=== PATIENT | female | born 2000 | race Caucasian/White ===

== ENCOUNTER 2023-11-26 23:56 | Inpatient (IN) | payer OTHER ==
[2023-11-27 00:31] LABS: AMNISURE TEST RESULTS NEGATIVE (NEGATIVE)
[2023-11-27 00:38] LABS: Appearance Cloudy (Clear); Bacteria Few /HPF (None Seen); Bilirubin Negative (Negative); Blood Large (Negative); Epithelial Cells Few /HPF (None Seen); Glucose, Urine Negative (Negative); Hyaline Casts NONE SEEN /LPF (0-2); Ketones Negative (Negative); Leukocyte Esterase Large (Negative); Nitrite Negative (Negative); Ph 6.5 (4.6-8.0); Protein,Urine Dip Trace (Negative); RBC >100 /HPF (0-5); WBC >100 /HPF (0-5)
[2023-11-27 00:40] LABS: ADD URINE CULTURE? YES (NO)
[2023-11-27 00:49] LABS: Amphetamine,Urine NEGATIVE (NEGATIVE); Barbiturate,Urine NEGATIVE (NEGATIVE); Benzodiazepine,Urine NEGATIVE (NEGATIVE); Cocaine,Urine NEGATIVE (NEGATIVE); Methadone,Urine NEGATIVE (NEGATIVE); Opiate,Urine NEGATIVE (NEGATIVE); PCP,Urine NEGATIVE (NEGATIVE); THC,Urine NEGATIVE (NEGATIVE)
[2023-11-27] MEDS ORDERED: TYLENOL EXTRA STRENGTH 500 MG PO PRN (03:00)
[2023-11-27] MEDS ORDERED: XYLOCAINE 1% HCL 20 ML MDV IJ PRN (03:00)
[2023-11-27] MEDS: Lactated Ringers 1,000 ML IV SCH (03:24)
[2023-11-27] MEDS: STADOL 2 MG IV PRN (03:39)
[2023-11-27] MEDS: Zofran 4 MG/2 ML VIAL IV PRN (03:39)
[2023-11-27 03:57] LABS: Absolute Neutrophil Ct (ANC) 13.63 x10^3/uL (1.4-6.9); BASOPHIL % 0.2 % (0.0-0.4); Basophil (Absolute #) 0.03 x10^3/uL (0-0.4); Eosinophil % 0.1 % (0.00-5.0); Eosinophil (Absolute #) 0.02 x10^3/uL (0-0.5); Hematocrit 37.3 % (35-47); Hemoglobin 12.4 g/dL (12.0-16.0); IMMATURE GRAN # 0.15 x10^3u/L (0.00-0.03); IMMATURE GRAN % 0.9 % (0.00-0.4); Lymphocyte (Absolute #) 1.32 x10^3/uL (1.0-4.6); Lymphocytes % 8.3 % (24.0-44.0); Mean Cell Volume 88.6 fL (78-100); Mean Corpuscular Hemoglobin 29.5 pg (26-32); Mean Corpuscular Hgb Concent. 33.2 g/dL (32-36); Monocyte (Absolute #) 0.66 x10^3/uL (0.0-1.3); Monocytes % 4.2 % (0.0-12.0); Neutrophil % 86.3 % (36.0-66.0); Platelet Count 235 x10^3/uL (150-450); Red Blood Count 4.21 x10^6/uL (4.1-5.4); White Blood Count 15.8 x10^3/uL (4.0-10.5)
[2023-11-27 04:29] LABS: ABO TYPING O; Antibody Screen NEGATIVE (NEGATIVE); RH TYPING POSITIVE
[2023-11-27] MEDS ORDERED: Lactated Ringers 1,000 ML IV ONE (06:04)
[2023-11-27] MEDS ORDERED: Ephedrine Sulfate 50 MG/ML IV PRN (06:17)
[2023-11-27] MEDS: FENTANYL 2 MCG-BUPIV 0.125%-NS 250 ML Epidur 250 ML EPIDURAL SCH (06:40)
[2023-11-27] MEDS: PITOCIN 30 UNITS/ LR 500 ML 30 UNITS/500 ML PLAST..BAG IV SCH (15:53)
[2023-11-27] MEDS ORDERED: Ambien 10 MG PO PRN (18:58)
[2023-11-27] MEDS ORDERED: Adacel Vial IM ONE (18:58)
[2023-11-27] MEDS ORDERED: NORCO 5/325 MG PO PRN (18:58)
[2023-11-27] MEDS ORDERED: CORTISONE 1% CREAM TP PRN (18:58)
[2023-11-27] MEDS ORDERED: Mylicon 80MG PO PRN (18:58)
[2023-11-27] MEDS ORDERED: Anucort-HC SUPPOSITORY PR PRN (18:58)
[2023-11-27] MEDS ORDERED: Dulcolax 10 MG SUPP PR PRN (18:58)
[2023-11-27] MEDS: TUCKS TP PRN (21:33)
[2023-11-27] MEDS: LANSINOH 40 GM TOP PRN (21:33)
[2023-11-27] MEDS ORDERED: Dermoplast Spray ONE (21:33)
[2023-11-27] MEDS: Dermoplast Spray TP PRN (21:53)
[2023-11-27] MEDS: Lactated Ringers 1,000 ML IV ONE (22:51)
[2023-11-28] MEDS: Docusate Sodium 100 MG PO SCH (00:56)
[2023-11-28 06:07] LABS: Absolute Neutrophil Ct (ANC) 11.53 x10^3/uL (1.4-6.9); BASOPHIL % 0.1 % (0.0-0.4); Basophil (Absolute #) 0.02 x10^3/uL (0-0.4); Eosinophil % 0.4 % (0.00-5.0); Eosinophil (Absolute #) 0.06 x10^3/uL (0-0.5); Hematocrit 31.8 % (35-47); Hemoglobin 10.4 g/dL (12.0-16.0); IMMATURE GRAN # 0.09 x10^3u/L (0.00-0.03); IMMATURE GRAN % 0.6 % (0.00-0.4); Lymphocyte (Absolute #) 1.62 x10^3/uL (1.0-4.6); Lymphocytes % 11.4 % (24.0-44.0); Mean Cell Volume 89.6 fL (78-100); Mean Corpuscular Hemoglobin 29.3 pg (26-32); Mean Corpuscular Hgb Concent. 32.7 g/dL (32-36); Mean Platelet Volume 12.2 fL (7.5-11.0); Monocyte (Absolute #) 0.95 x10^3/uL (0.0-1.3); Monocytes % 6.7 % (0.0-12.0); Neutrophil % 80.8 % (36.0-66.0); Platelet Count 201 x10^3/uL (150-450); Red Blood Count 3.55 x10^6/uL (4.1-5.4); Red Cell Distribution Width 14.3 % (11.5-14.0); White Blood Count 14.3 x10^3/uL (4.0-10.5)
[2023-11-28 08:47] VITALS: O2SAT 97
[2023-11-28] MEDS: MOTRIN 400 MG PO PRN (09:19)
[2023-11-28] MEDS: FERREX 150 PO SCH (14:20)
[2023-11-28] MEDS: TYLENOL EXTRA STRENGTH 500 MG PO PRN (14:25)
[2023-11-28 15:38] VITALS: RESP 18
[2023-11-29 07:47] VITALS: BP 135/83; PULSE 81; TEMP 98.3
--- NOTE | 2023-11-29 09:38 | PCM.DS ---
Discharge Summary Date of Admission: 11/26/23 23:56 Admitting Physician: ANASTASIA ONEILL Consults: Consults on Case 11/27/23 06:18 Notify Anesthesia Provider PRN 11/27/23 18:58 Notify Physician ROUTINE Primary Care Provider: ANASTASIA ONEILL Allergies Allergies No Known Drug Allergies Allergy (Verified 11/02/23 13:18) Hospital Summary - Hospital Course Hospital Course: patient had an uncomplicated vaginal delivery. and mom and baby are doing great. no problems or concerns - Vitals & Intake/Output Vital Signs: Vital Signs Temperature 98.3 F 11/29/23 07:46 Pulse Rate 81 11/29/23 07:46 Respiratory Rate 18 11/29/23 07:46 Blood Pressure 135/83 11/29/23 07:46 O2 Sat by Pulse Oximetry 97 11/28/23 08:00 Intake & Output: Intake & Output 11/26/23 11/27/23 11/28/23 11/29/23 11:59 11:59 11:59 11:59 Intake Total 2400 600 1200 Output Total 200 1075 Balance 2200 -475 1200 Weight 132.449 kg - Lab Result Diagrams: 11/28/23 05:18 Micro Results-Entire Visit: Microbiology 11/27/23 00:29 Urine Culture - Final Urine, Void <10K NORMAL SKIN GIN PROBABLE SKIN CONTAMINANT Discharge Exam General Appearance: no apparent distress, obese Neurologic Exam: alert, oriented x 3 Respiratory Exam: normal breath sounds, lungs clear, No respiratory distress Cardiovascular Exam: regular rate/rhythm, normal heart sounds Gastrointestinal/Abdomen Exam: soft, No tenderness, No mass Extremity Exam: normal inspection, normal range of motion Skin Exam: normal color, warm, dry Final Diagnosis/Problem List - Final Discharge Diagnosis/Problem (1) Normal vaginal delivery Current Visit: Yes Status: Acute Code(s): O80 - ENCOUNTER FOR FULL-TERM UNCOMPLICATED DELIVERY (2) Second degree perineal laceration during delivery Current Visit: Yes Status: Acute Code(s): O70.1 - SECOND DEGREE PERINEAL LA CERATION DURING DELIVERY - Discharge Disposition: Home, Self-Care Condition: Stable Prescriptions: Continue Vit No.179/Iron/Folic [ Tablet] 1 tab PO DAILY Follow up with: ANASTASIA ONEILL MD [Primary Care Provider] -
== END 2023-11-29 14:15 | disposition home or self-care (01) | DRG 807 ==
LOC: OB 23:56 → OBSVTOIN 11-27 11:30
PROVIDERS: ADMIT Family Medicine; ATTEND Family Medicine
PROC: 10E0XZZ Delivery of Products of Conception, External Approach (ICD-10-PCS; principal; 2023-11-27)
PROC: 0KQM0ZZ Repair Perineum Muscle, Open Approach (ICD-10-PCS; 2023-11-27)
DX: O70.1 Second degree perineal laceration during delivery (principal); Z37.0 Single live birth; Z3A.39 39 weeks gestation of pregnancy
CPT/HCPCS: 36415; 80307; 81001; 84112; 85025; 86850; 86900; 86901; 87086; J0595; J2405; J2590; A9270-GY